=== PATIENT | female | born 1935 | race Caucasian/White ===

== ENCOUNTER 2023-03-10 08:15 | Outpatient (CLI) | payer MEDICARE, BC ==
[2023-03-10] MEDS ORDERED: Iopamidol 300 61% 100 ML VIAL FS ONE (10:22)
== END 2023-03-10 08:16 | disposition home or self-care (01) ==
LOC: CSHCT 08:15
PROVIDERS: ATTEND Specialist
DX: I77.810 Thoracic aortic ectasia (principal)
CPT/HCPCS: 71270; 82565